=== PATIENT | male | born 1960 | race Caucasian/White ===

== ENCOUNTER 2024-09-29 16:06 | Emergency (ER) | payer OTHER ==
[~2024-09-29] VITALS: Ht 180.3 cm; Wt 105.0 kg
[2024-09-29 16:08] VITALS: O2SAT 98
[2024-09-29] MEDS: LABETALOL 5MG/ML 4ML INJ IV ONE (18:40)
[2024-09-29 18:46] LABS: BASOPHILS % 0.3 % (0.0-2.0); EOSINOPHILS % 0.7 % (0.0-5.0); HEMATOCRIT. 44.5 % (42.0-52.0); HEMOGLOBIN. 15.4 g/dL (14.0-18.0); LYMPHOCYTES % 13.3 % (20.0-50.0); MEAN CORPUSCULAR HEMOGLOBIN 29.3 pg (28.0-32.0); MEAN CORPUSCULAR HGB CONC 34.5 g/dL (31.0-37.0); MEAN CORPUSCULAR VOLUME 84.9 fL (80.0-94.0); MEAN PLATELET VOLUME 8.9 fl (7.4-10.4); MONOCYTES % 6.2 % (2.0-8.0); NEUTROPHILS % 79.5 % (40.0-76.0); PLATELET 196 x1000/uL (130-400); RED BLOOD CELL COUNT 5.25 mill/uL (4.7-6.1); RED CELL DISTRIBUTION WIDTH 14.2 % (11.6-14.6); WHITE BLOOD COUNT 10.3 x1000/uL (4.5-11.0)
[2024-09-29 18:55] LABS: CHLORIDE 108 mEq/L (98-107); POTASSIUM 4.1 mEq/L (3.5-5.1); SODIUM 141 mEq/L (136-145)
[2024-09-29 18:56] LABS: CALCIUM 9.2 mg/dL (8.7-10.4); CARBON DIOXIDE 27 mEq/L (21-32)
[2024-09-29 19:01] LABS: GLUCOSE 98 mg/dL (70-105); UREA NITROGEN BLOOD 13 mg/dL (9-23)
[2024-09-29 19:02] LABS: TROPONIN I HIGH SENSITIVITY 4 ng/L (3.0-53)
[2024-09-29 20:15] VITALS: BP 130/81; PULSE 96; RESP 18; TEMP 36.8; O2SAT 100
== END 2024-09-29 20:18 | disposition home or self-care (01) ==
LOC: ER 16:06
DX: I10 Essential (primary) hypertension (principal); R51.9 Headache, unspecified
CPT/HCPCS: 36415; 71045; 80048; 83880; 84484; 85025; 93005; 99285